=== PATIENT | female | born 1960 | race Caucasian/White ===

== ENCOUNTER → 2017-06-23 | Outpatient (CLI) | payer OTHER ==
--- NOTE | 2017-06-23 15:24 | REP ---
Left foot four views: There is mild joint space narrowing of the PIP and DIP articulations compatible with mild osteoarthritis. There is mild osteoarthritis of the great toe MTP articulation. Mineralization and joint spaces otherwise are unremarkable. There is no fracture or dislocation. There is a small calcaneal Achilles spur. Signed by Amadou Powell MD 06/23/2017 03:16 P
== END ==
LOC: M WUC 14:17
PROVIDERS: ATTEND Physician Assistant
DX: S90.32XA Contusion of left foot, initial encounter (principal); M77.32 Calcaneal spur, left foot; X58.XXXA Exposure to other specified factors, initial encounter; Y92.89 Other specified places as the place of occurrence of the external cause; Y93.89 Activity, other specified; Y99.8 Other external cause status

== ENCOUNTER → 2023-02-23 | Outpatient (CLI) | payer SELFPAY | LOC: M WUC 14:56 | PROVIDERS: ATTEND Physician Assistant | DX: S60.222A Contusion of left hand, initial encounter (principal); W18.30XA Fall on same level, unspecified, initial encounter; Y92.009 Unspecified place in unspecified non-institutional (private) residence as the place of occurrence of the external cause ==

== ENCOUNTER 2023-06-27 20:39 | Day surgery (SDC) | payer MEDICAID, OTHER ==
[~2023-06-27] VITALS: Ht 177.8 cm; Wt 77.3 kg
[2023-06-27 21:31] LABS: BASO % 0.4 % (0.0-1.0); EOS # 0.1 10^3/uL (0.0-0.5); EOS % 0.5 % (0.0-3.0); HEMATOCRIT 39.4 % (36.0-47.0); HEMOGLOBIN 13.6 g/dl (12.0-15.5); LYMPH # 1.6 10^3/uL (1.5-5.0); MEAN CORPUSCULAR HEMOGLOBIN 31.2 pg (27.0-33.0); MEAN CORPUSCULAR HGB CONC 34.5 g/dl (32.0-36.5); MEAN CORPUSCULAR VOLUME 90.4 fl (80.0-96.0); MONO # 0.6 10^3/uL (0.0-0.8); MONO % 5.8 % (2.0-8.0); NEUTROPHILS # 8.8 10^3/uL (1.5-8.5); NEUTROPHILS % 78.9 % (36.0-66.0); PLATELET COUNT, AUTOMATED 199 10^3/uL (150-450); RED BLOOD COUNT 4.36 10^6/uL (4.00-5.40); WHITE BLOOD COUNT 11.1 10^3/uL (4.0-10.0)
[2023-06-27 21:49] LABS: CK-MB VALUE MASS < 1.0 NG/ML (<3.6)
[2023-06-27 21:51] LABS: ALBUMIN 3.7 G/DL (3.2-5.2); BILIRUBIN,DIRECT 0.4 MG/DL (<0.4); BILIRUBIN,TOTAL 0.9 MG/DL (0.3-1.2); CPK CREATINE PHOSPHOKINASE 40 U/L (34-145); TOTAL PROTEIN 7.1 G/DL (5.7-8.2)
[2023-06-27 22:02] LABS: RSV AMPLIFICATION NEGATIVE (NEGATIVE)
[2023-06-27] MEDS ORDERED: ONDANSETRON 4MG 2ML VIAL IV ONE (22:10)
[2023-06-27] MEDS ORDERED: ACETAMINOPHEN TAB 650MG DOSE (2X325MG) PO ONE (22:10)
[2023-06-27] MEDS ORDERED: ISOVUE-370 76% 100ML VIAL As Ordered ONE (22:48)
[2023-06-27] MEDS: MORPHINE 4 MG/ML 1ML VIAL IV PRN (22:48)
[2023-06-28] VITALS (9 sets, daily range): BP systolic 91–116; BP diastolic 54–77; TEMP 95.6–97.7; O2SAT 94–97
[2023-06-28] MEDS ORDERED: PIPERACILLIN/TAZOBACTAM SOD 3.375 GM in D5W MINI-BAG PLUS 50 ML IV ONE (00:20)
[2023-06-28] MEDS ORDERED: ONDANSETRON 4MG 2ML VIAL IV PRN ×2 (00:35→07:20)
[2023-06-28] MEDS ORDERED: NORCO, ANEXSIA 5/325MG TABLET (HYDROcodone/ACETAMINOPHEN) PO PRN (00:35)
[2023-06-28] MEDS ORDERED: HOME MED LIST COMPLETE! XX SCH (01:25)
[2023-06-28] MEDS: NS 1,000 ML IV SCH ×3 (01:31→17:00)
[2023-06-28] MEDS: MORPHINE 4 MG/ML 1ML VIAL IV PRN (03:17)
[2023-06-28] MEDS ORDERED: fentaNYL 100 MCG/2 ML INJECTION As Ordered ONE (05:58)
[2023-06-28] MEDS ORDERED: propofoL 200 MG/20 ML VIAL As Ordered ONE (05:59)
[2023-06-28] MEDS ORDERED: ROCURONIUM BROMIDE 50MG/5ML VIAL As Ordered ONE (05:59)
[2023-06-28] MEDS ORDERED: MIDAZOLAM INJ 2MG/2ML VIAL As Ordered ONE (05:59)
[2023-06-28] MEDS ORDERED: LIDOCAINE 2% 100MG/5ML SDV (FOR ANES.) As Ordered ONE (05:59)
[2023-06-28] MEDS ORDERED: SUCCINYLCHOLINE 100MG/5ML SYRINGE As Ordered ONE (05:59)
[2023-06-28] MEDS ORDERED: ZOSYN 3.375GM VIAL As Ordered ONE (06:18)
[2023-06-28] MEDS ORDERED: KETOROLAC 60MG 2ML VIAL As Ordered ONE (06:34)
[2023-06-28] MEDS ORDERED: ONDANSETRON 4MG 2ML VIAL As Ordered ONE (06:34)
[2023-06-28] MEDS ORDERED: SUGAMMADEX SODIUM 500 MG/5 ML VIAL (BRIDION) As Ordered ONE (07:01)
[2023-06-28] MEDS ORDERED: ACETAMINOPHEN 1000MG 100ML IV BAG As Ordered ONE (07:01)
[2023-06-28] MEDS ORDERED: oxyCODONE 5MG TAB PO PRN (07:20)
[2023-06-28] MEDS ORDERED: HYDROMORPHONE HCL 0.5 MG/ 0.5 ML SYRINGE IV PRN (07:20)
[2023-06-28] MEDS ORDERED: LR 1,000 ML IV SCH (07:20)
[2023-06-28] MEDS ORDERED: METOCLOPRAMIDE INJ 10MG/2ML VIAL IV PRN (07:20)
[2023-06-28] MEDS: ONDANSETRON 4MG TAB PO PRN ×2 (07:40→10:30)
[2023-06-28] MEDS: fentaNYL 100 MCG/2 ML INJECTION IV PRN ×4 (08:01→08:18)
[2023-06-28] MEDS: SENOKOT S TAB PO SCH ×2 (10:28→20:23)
[2023-06-28] MEDS: PIPERACILLIN/TAZOBACTAM SOD 3.375 GM in D5W MINI-BAG PLUS 50 ML IV SCH ×3 (10:32→18:19)
[2023-06-28] MEDS: KETOROLAC 30 MG/ML 1ML VIAL IV PRN ×2 (13:45→22:48)
[2023-06-29] MEDS: PIPERACILLIN/TAZOBACTAM SOD 3.375 GM in D5W MINI-BAG PLUS 50 ML IV SCH ×4 (00:13→17:55)
[2023-06-29] MEDS: NS 1,000 ML IV SCH ×3 (01:21→10:16)
[2023-06-29 01:40] VITALS: BP 100/52; TEMP 96.3; O2SAT 95
[2023-06-29 05:32] VITALS: BP 112/62; TEMP 97.5; O2SAT 92
[2023-06-29] MEDS: KETOROLAC 30 MG/ML 1ML VIAL IV PRN ×3 (05:36→17:55)
[2023-06-29 05:44] LABS: HEMATOCRIT 32.4 % (36.0-47.0); MEAN CORPUSCULAR HEMOGLOBIN 31.2 pg (27.0-33.0); MEAN CORPUSCULAR HGB CONC 33.6 g/dl (32.0-36.5); MEAN CORPUSCULAR VOLUME 92.8 fl (80.0-96.0); PLATELET COUNT, AUTOMATED 143 10^3/uL (150-450); RED BLOOD COUNT 3.49 10^6/uL (4.00-5.40); WHITE BLOOD COUNT 8.1 10^3/uL (4.0-10.0)
[2023-06-29 05:51] LABS: HEMOGLOBIN 10.9 g/dl (12.0-15.5)
[2023-06-29] MEDS: NORCO, ANEXSIA 5/325MG TABLET (HYDROcodone/ACETAMINOPHEN) PO PRN ×2 (07:00→23:10)
[2023-06-29] MEDS: SENOKOT S TAB PO SCH ×2 (09:26→20:44)
[2023-06-29 09:30] VITALS: BP 107/60; TEMP 97.3; O2SAT 95
[2023-06-29 14:00] VITALS: BP 112/73; TEMP 98.1; O2SAT 95
[2023-06-29 17:34] VITALS: BP 103/58; TEMP 98.1; O2SAT 95
[2023-06-29 21:39] VITALS: BP 101/58; TEMP 97.9; O2SAT 94
[2023-06-30] MEDS: KETOROLAC 30 MG/ML 1ML VIAL IV PRN ×2 (00:09→06:19)
[2023-06-30] MEDS: PIPERACILLIN/TAZOBACTAM SOD 3.375 GM in D5W MINI-BAG PLUS 50 ML IV SCH ×3 (00:16→12:00)
[2023-06-30 06:00] VITALS: BP 123/72; TEMP 97.9; O2SAT 93
[2023-06-30] MEDS ORDERED: PERCOCET 5MG/325MG TAB PO PRN (09:30)
[2023-06-30] MEDS ORDERED: AUGM500T34 PO (09:32)
[2023-06-30] MEDS ORDERED: HYDR-3715 PO (09:32)
[2023-06-30] MEDS: SENOKOT S TAB PO SCH (09:41)
== END 2023-06-30 12:00 | disposition home or self-care (01) ==
LOC: M ED 20:39 → M SDC 06-28 00:31 → M MS5PR 06-28 09:10 → M SDC 06-30 12:00
PROVIDERS: ATTEND Surgery
DX: K35.32 Acute appendicitis with perforation, localized peritonitis, and gangrene, without abscess (principal); F17.210 Nicotine dependence, cigarettes, uncomplicated
CPT/HCPCS: 36415; 44970; 74177; 80047; 80076; 81001; 82550; 82553; 83605; 83690; 85025; 85027; 87040; 87631; 88304; 93005; 96365; 96366; 96375; 96376; 99284; J0131; J0330; J0665; J1100; J1885; J2250; J2405; J2543; J3010; Q9967

== ENCOUNTER 2023-07-14 05:52 | Inpatient (IN) | payer OTHER ==
[~2023-07-14] VITALS: Ht 177.8 cm; Wt 73.5 kg
[~2023-07-14 05:52] MED LIST: AUGM500T34 PO; HYDR-3715 PO
[2023-07-14] MEDS ORDERED: NS 500 ML IV ONE (06:25)
[2023-07-14] MEDS ORDERED: MORPHINE 4 MG/ML 1ML VIAL IV ONE (06:55)
[2023-07-14] MEDS ORDERED: ONDANSETRON 4MG 2ML VIAL IV ONE (06:55)
[2023-07-14 06:56] LABS: BASO % 0.4 % (0.0-1.0); EOS % 0.3 % (0.0-3.0); HEMATOCRIT 32.9 % (36.0-47.0); HEMOGLOBIN 11.3 g/dl (12.0-15.5); LYMPH # 1.3 10^3/uL (1.5-5.0); LYMPH % 11.5 % (24.0-44.0); MEAN CORPUSCULAR HEMOGLOBIN 30.3 pg (27.0-33.0); MEAN CORPUSCULAR HGB CONC 34.3 g/dl (32.0-36.5); MEAN CORPUSCULAR VOLUME 88.2 fl (80.0-96.0); MONO # 0.8 10^3/uL (0.0-0.8); MONO % 6.8 % (2.0-8.0); NEUTROPHILS % 80.7 % (36.0-66.0); PLATELET COUNT, AUTOMATED 388 10^3/uL (150-450); RED BLOOD COUNT 3.73 10^6/uL (4.00-5.40); WHITE BLOOD COUNT 11.2 10^3/uL (4.0-10.0)
[2023-07-14 07:22] LABS: ALBUMIN 3.1 G/DL (3.2-5.2); BILIRUBIN,DIRECT 0.3 MG/DL (<0.4); BILIRUBIN,TOTAL 0.7 MG/DL (0.3-1.2); TOTAL PROTEIN 7.1 G/DL (5.7-8.2)
[2023-07-14 07:25] LABS: RSV AMPLIFICATION POSITIVE (NEGATIVE)
[2023-07-14] MEDS ORDERED: ISOVUE-370 76% 100ML VIAL As Ordered ONE (07:29)
[2023-07-14] MEDS ORDERED: KETOROLAC 30 MG/ML 1ML VIAL IV ONE (08:00)
[2023-07-14] MEDS ORDERED: PIPERACILLIN/TAZOBACTAM SOD 4.5 GM in D5W MINI-BAG PLUS 50 ML IV ONE (08:40)
[2023-07-14] MEDS ORDERED: ACETAMINOPHEN TAB 650MG DOSE (2X325MG) PO ONE (11:50)
[2023-07-14] MEDS ORDERED: MED REC IN PROGRESS XX SCH (12:00)
[2023-07-14] MEDS ORDERED: ONDA4TAB6 PO (12:10)
[2023-07-14] MEDS ORDERED: HOME MED LIST COMPLETE! XX SCH (12:20)
[2023-07-14 15:40] VITALS: BP 123/60; TEMP 97.5; O2SAT 99
[2023-07-14] MEDS: PIPERACILLIN/TAZOBACTAM SOD 3.375 GM in D5W MINI-BAG PLUS 50 ML IV SCH ×2 (15:58→19:56)
[2023-07-14] MEDS: ONDANSETRON 4MG ORAL DISINTEGRATING TAB PO PRN (19:55)
[2023-07-14] MEDS: MORPHINE 2 MG/ML 1ML VIAL IV PRN (19:57)
[2023-07-14] MEDS: HEPARIN SOD (PORCINE) 5000UNITS/ML 1ML VIAL/SYRINGE SC SCH (22:41)
[2023-07-15] MEDS: MORPHINE 2 MG/ML 1ML VIAL IV PRN (01:27)
[2023-07-15] MEDS: PIPERACILLIN/TAZOBACTAM SOD 3.375 GM in D5W MINI-BAG PLUS 50 ML IV SCH ×4 (01:28→19:54)
[2023-07-15] MEDS: ACETAMINOPHEN TAB 650MG DOSE (2X325MG) PO PRN ×4 (04:21→21:13)
[2023-07-15 05:42] VITALS: BP 102/52; TEMP 99.8; O2SAT 97
[2023-07-15] MEDS: HEPARIN SOD (PORCINE) 5000UNITS/ML 1ML VIAL/SYRINGE SC SCH ×3 (05:58→21:13)
[2023-07-15 06:13] LABS: HEMATOCRIT 29.6 % (36.0-47.0); MEAN CORPUSCULAR HEMOGLOBIN 29.9 pg (27.0-33.0); MEAN CORPUSCULAR HGB CONC 33.8 g/dl (32.0-36.5); MEAN CORPUSCULAR VOLUME 88.6 fl (80.0-96.0); PLATELET COUNT, AUTOMATED 321 10^3/uL (150-450); RED BLOOD COUNT 3.34 10^6/uL (4.00-5.40); WHITE BLOOD COUNT 9.4 10^3/uL (4.0-10.0)
[2023-07-15 06:50] LABS: BLOOD UREA NITROGEN 11 MG/DL (9-23); CALCIUM LEVEL 8.7 MG/DL (8.3-10.6); CARBON DIOXIDE LEVEL 24 MMOL/L (20-31); CHLORIDE LEVEL 97 MMOL/L (98-107); CREATININE FOR GFR 0.74 MG/DL (0.55-1.30); GLOMERULAR FILTRATION RATE > 60.0 (>45); GLUCOSE, FASTING 119 MG/DL (74-106); POTASSIUM SERUM 3.6 MMOL/L (3.5-5.1); SODIUM LEVEL 133 MMOL/L (136-145)
[2023-07-15 14:21] VITALS: BP 123/55; TEMP 101.2; O2SAT 98
[2023-07-15] MEDS: ONDANSETRON 4MG ORAL DISINTEGRATING TAB PO PRN (14:28)
[2023-07-15 15:04] VITALS: TEMP 102
[2023-07-15 16:12] VITALS: BP 108/56; TEMP 100.2; O2SAT 96
[2023-07-15 17:24] VITALS: BP 100/54; TEMP 100.6; O2SAT 95
[2023-07-15 20:00] VITALS: BP 112/59; TEMP 100.3; O2SAT 96
[2023-07-15] MEDS ORDERED: ACETAMINOPHEN *IV* 1,000 MG in IV 1 EA IV ONE (21:30)
[2023-07-15] MEDS: ONDANSETRON 4MG 2ML VIAL IV PRN (21:38)
[2023-07-16] MEDS: PIPERACILLIN/TAZOBACTAM SOD 3.375 GM in D5W MINI-BAG PLUS 50 ML IV SCH ×4 (01:50→20:14)
[2023-07-16] MEDS: ONDANSETRON 4MG 2ML VIAL IV PRN ×2 (05:35→17:30)
[2023-07-16] MEDS: HEPARIN SOD (PORCINE) 5000UNITS/ML 1ML VIAL/SYRINGE SC SCH ×4 (05:36→21:12)
[2023-07-16 06:00] VITALS: BP 104/52; TEMP 100.5; O2SAT 96
[2023-07-16] MEDS: NS 1,000 ML IV SCH ×2 (06:03→12:30)
[2023-07-16] MEDS: ACETAMINOPHEN TAB 650MG DOSE (2X325MG) PO PRN ×3 (06:04→21:14)
[2023-07-16] MEDS: MORPHINE 2 MG/ML 1ML VIAL IV PRN ×2 (09:12→17:09)
[2023-07-16] MEDS ORDERED: MORPHINE 2 MG/ML 1ML VIAL IV PRN (09:45)
[2023-07-16] MEDS ORDERED: NALOXONE INJ 0.4MG/1ML VIAL IV PRN ×2 (09:45→10:12)
[2023-07-16] MEDS ORDERED: NS 1,000 ML IV ONE (09:45)
[2023-07-16] MEDS ORDERED: LIDOCAINE 1% MDV 20ML VIAL As Ordered ONE (13:07)
[2023-07-16 14:00] VITALS: BP 112/57; TEMP 100.5; O2SAT 95
[2023-07-16] MEDS ORDERED: MIDAZOLAM INJ 2MG/2ML VIAL As Ordered ONE (15:08)
[2023-07-16] MEDS ORDERED: fentaNYL 100 MCG/2 ML INJECTION As Ordered ONE (15:08)
[2023-07-16 21:01] VITALS: BP 100/55; TEMP 99.1; O2SAT 94
[2023-07-17] MEDS: PIPERACILLIN/TAZOBACTAM SOD 3.375 GM in D5W MINI-BAG PLUS 50 ML IV SCH ×4 (02:44→20:41)
[2023-07-17] MEDS ORDERED: PERCOCET 5MG/325MG TAB PO ONE (03:00)
[2023-07-17] MEDS: NS 1,000 ML IV SCH (03:02)
[2023-07-17] MEDS: HEPARIN SOD (PORCINE) 5000UNITS/ML 1ML VIAL/SYRINGE SC SCH ×3 (05:09→22:36)
[2023-07-17 05:13] VITALS: BP 110/57; TEMP 97.6; O2SAT 96
[2023-07-17 09:00] VITALS: BP 122/68; TEMP 97.9; O2SAT 98
[2023-07-17] MEDS ORDERED: HYDROMORPHONE HCL 0.5 MG/ 0.5 ML SYRINGE IV ONE (13:35)
[2023-07-17] MEDS: MORPHINE 2 MG/ML 1ML VIAL IV PRN (13:55)
[2023-07-17 14:00] VITALS: BP 119/63; TEMP 98.8; O2SAT 97
[2023-07-17] MEDS: PERCOCET 5MG/325MG TAB PO PRN ×2 (14:35→20:40)
[2023-07-17 20:33] VITALS: BP 110/58; TEMP 99.4; O2SAT 96
[2023-07-18] MEDS: PERCOCET 5MG/325MG TAB PO PRN ×2 (00:51→05:06)
[2023-07-18] MEDS: PIPERACILLIN/TAZOBACTAM SOD 3.375 GM in D5W MINI-BAG PLUS 50 ML IV SCH ×2 (02:29→08:56)
[2023-07-18] MEDS: HEPARIN SOD (PORCINE) 5000UNITS/ML 1ML VIAL/SYRINGE SC SCH (05:06)
[2023-07-18] MEDS: ONDANSETRON 4MG 2ML VIAL IV PRN (05:06)
[2023-07-18 05:07] VITALS: BP 101/58; TEMP 97.9; O2SAT 96
[2023-07-18] MEDS ORDERED: SENO8.6T10 PO (08:50)
[2023-07-18] MEDS ORDERED: MOM30SS2 PO (08:50)
[2023-07-18] MEDS ORDERED: LEVO1TAB40 PO (08:50)
[2023-07-18] MEDS ORDERED: BACI1CAP PO (08:50)
[2023-07-18] MEDS ORDERED: METR-265 PO (08:50)
[2023-07-18] MEDS ORDERED: PERCOCET PO (08:50)
== END 2023-07-18 13:24 | disposition home or self-care (01) | DRG 711 ==
LOC: M ED 05:52 → EDBD 05:52 → M ED INP 13:20 → ENRESERV 14:33 → M MSPAV 15:42
PROVIDERS: ADMIT Family Medicine; ATTEND General Practice
PROC: 0K9K30Z Drainage of Right Abdomen Muscle with Drainage Device, Percutaneous Approach (ICD-10-PCS; principal; 2023-07-16 16:00)
DX: T81.43XA Infection following a procedure, organ and space surgical site, initial encounter (principal); Y83.6 Removal of other organ (partial) (total) as the cause of abnormal reaction of the patient, or of later complication, without mention of misadventure at the time of the procedure; B96.20 Unspecified Escherichia coli [E. coli] as the cause of diseases classified elsewhere

== ENCOUNTER → 2024-02-06 | Outpatient (REF) | payer MEDICAID, OTHER, SELFPAY ==
[~2024-02-06] MED LIST changes: +BACI1CAP PO; +LEVO1TAB40 PO; +METR-265 PO; +MOM30SS2 PO; +ONDA-282 PO; +PERCOCET PO; +SENO8.6T10 PO
[2024-02-06 18:41] LABS: HEMOGLOBIN A1c 5.2 % (4.0-6.0)
[2024-02-06 18:55] LABS: ALBUMIN 3.5 G/DL (3.2-5.2); ALKALINE PHOSPHATASE 115 U/L (46-116); ALT/SGPT 15 U/L (7.0-40); AST/SGOT 9 U/L (<34); BILIRUBIN,TOTAL 0.2 MG/DL (0.3-1.2); BLOOD UREA NITROGEN 13 MG/DL (9-23); CALCIUM LEVEL 9.2 MG/DL (8.3-10.6); CARBON DIOXIDE LEVEL 27 MMOL/L (20-31); CHLORIDE LEVEL 106 MMOL/L (98-107); CHOLESTEROL LEVEL 128 MG/DL (<200); CHOLESTEROL RISK RATIO 4.21 (<5); CREATININE FOR GFR 0.75 MG/DL (0.55-1.30); GLOMERULAR FILTRATION RATE > 60.0 (>45); GLUCOSE, FASTING 99 MG/DL (74-106); HDL CHOLESTEROL 30.4 MG/DL (>40); LDL CHOLESTEROL 70.6 MG/DL (<100); NON-HDL-C 97.6 MG/DL; POTASSIUM SERUM 5.4 MMOL/L (3.5-5.1); SODIUM LEVEL 140 MMOL/L (136-145); TOTAL PROTEIN 6.9 G/DL (5.7-8.2); TRIGLYCERIDES LEVEL 135 MG/DL (<150)
[2024-02-06 18:58] LABS: THYROID STIMULATING HORMONE 0.593 uIU/ML (0.55-4.78); TOTAL 25(OH) VITAMIN D 19.6 NG/ML (20.0-100.0)
== END ==
LOC: M LAB REF 16:28
PROVIDERS: ATTEND Physician Assistant
DX: E55.9 Vitamin D deficiency, unspecified (principal); Z13.220 Encounter for screening for lipoid disorders; Z13.29 Encounter for screening for other suspected endocrine disorder; Z13.1 Encounter for screening for diabetes mellitus